=== PATIENT | female | born 1980 | race Native Hawaiian/Other Pacific Islander ===

== ENCOUNTER 2020-08-24 11:06 | Emergency (ER) | payer OTHER, SELFPAY ==
[2020-08-24 11:16] VITALS: BP 121/79; PULSE 69; RESP 12; TEMP 36.8; O2SAT 100
--- NOTE | 2020-08-24 11:28 | ED.BACK ---
HPI - Back Pain/Injury General Chief Complaint: Back Pain/Injury Stated Complaint: back pain Time Seen by Provider: 08/24/20 11:29 Source: patient and RN notes reviewed Mode of arrival: ambulatory Limitations: no limitations History of Present Illness HPI Narrative: 40-year-old female presents with concern for left low back pain. Reports a history of a back injury at work that occasionally goes out . Reports she has had instances of her back going out when she sneezes. Reports Friday night she sneezed and began having low back pain. She reports usually a muscle relaxer will resolve the pain however she is out of her muscle relaxer. Reports she is used ibuprofen, heat, Choudrant balm, Biofreeze with little relief. She denies loss of bowel or bladder function, perianal anesthesia, weakness in any extremity, fever, abdominal pain. MD elicited complaint: back pain Related Data Home Medications Medication Instructions Recorded Confirmed Zyrtec 08/24/20 montelukast [Singulair] 10 mg PO HS 08/24/20 08/24/20 Allergies Allergy/AdvReac Type Severity Reaction Status Date / Time No Known Allergies Allergy Verified 08/24/20 11:17 Review of Systems Review of Systems: Narrative: CONSTITUTIONAL: Denies malaise, chills, sweats, or fever. CARDIOVASCULAR: Denies chest pain, palpitations, or edema. RESPIRATORY: Denies cough or dyspnea. GASTROINTESTINAL: Denies abdominal pain, nausea, vomiting, diarrhea GENITOURINARY: Denies dysuria or hematuria. SKIN: Denies bruising, redness, rash MUSCULOSKELETAL: Reports left low back pain. Denies myalgia. NEUROLOGIC: Denies numbness, weakness, or headache. All systems reviewed & are unremarkable except as noted in HPI and below PMFSH Social History Social History Smoking status: Never smoker Second hand tobacco smoke exposure: No Alcohol intake: current Comments At time of signature, agree with nursing past medical, surgical, social and family history. There is no relevant family history pertinent to the presenting complaint Exam Narrative: Exam Narrative: GENERAL: Well-appearing, well-nourished, and in no acute distress. HEAD: Normocephalic, atraumatic. EYES: PERRLA and EOMI. NECK: Supple. No lymphadenopathy. CHEST: Clear to auscultation. No respiratory distress. HEART: Regular rate and rhythm. Distal pulses palpable and equal, cap refill <3 seconds ABDOMEN: Soft, nontender, nondistended, normal active bowel sounds, no palpable or pulsatile masses. No CVA tenderness MUSCULOSKELETAL: Normal range of motion and strength in all extremities; 5/5 strength with hip flexion and extension, dorsiflexion and extension, knee flexion and extension, plantar flexion and extension. Normal sensation in dermatomal distributions with sensitivity to light touch and pain. No midline back tenderness to palpation. No paraspinal tenderness. Transfers from lying to sitting to standing. SKIN: Warm, dry, no rash. No ecchymosis, erythema, open wounds to back. NEURO: No focal deficits. Alert and oriented x3. Reflexes intact. Normal gait. PSYCH: Normal mood and affect Course Course Emergency Course: Patient is aware of diagnosis, understands and agrees to treatment plan. Anticipatory guidance given. Patient agrees to follow-up as directed and is aware of reasons to seek care at the emergency department. Portions of this record may have been created with voice recognition software Vital Signs Vital signs: Vital Signs Temperature 98.2 F 08/24/20 11:16 Pulse Rate 69 08/24/20 11:16 Respiratory Rate 12 08/24/20 11:16 Blood Pressure 121/79 08/24/20 11:16 Pulse Oximetry 100 08/24/20 11:16 Temperature 98.2 F 08/24/20 11:16 Pulse Rate 69 08/24/20 11:16 Respiratory Rate 12 08/24/20 11:16 Blood Pressure 121/79 08/24/20 11:16 Pulse Oximetry 100 08/24/20 11:16 Reviewed. MDM - Back Pain/Injury MDM Narrative Medical decision making narrative: No risk factors or findings con
== END 2020-08-24 11:45 | disposition home or self-care (01) ==
PROVIDERS: Emergency Provider Nurse Practitioner; PCP Family Medicine
DX: M54.5 Low back pain (principal)
CPT/HCPCS: 99203; G0463